=== PATIENT | female | born 1975 | race Caucasian/White ===

== ENCOUNTER 2016-06-23 17:34 | Emergency (ER) | payer OTHER | END 2016-06-23 18:15 | disposition home or self-care (01) | LOC: ER 17:34 | DX: T24.202A Burn of second degree of unspecified site of left lower limb, except ankle and foot, initial encounter (principal); F19.10 Other psychoactive substance abuse, uncomplicated; B19.20 Unspecified viral hepatitis C without hepatic coma; F31.9 Bipolar disorder, unspecified; F17.210 Nicotine dependence, cigarettes, uncomplicated; Z23 Encounter for immunization; Z98.84 Bariatric surgery status; Z79.899 Other long term (current) drug therapy; X11.8XXA Contact with other hot tap-water, initial encounter | CPT/HCPCS: 90471 ==